=== PATIENT | male | born 1970 | race African-American/Black ===

== ENCOUNTER 2020-04-19 19:39 | Emergency (ER) | payer MEDICAID ==
[~2020-04-19] VITALS: Ht 182.9 cm; Wt 113.6 kg
--- NOTE | 2020-04-19 20:20 | NUR ---
patient resting up in eye exam chair. L saira-orbital swelling present. non-tender to palpation. R lateral eye brow scab from recent fall "9 days ago". patient denies visual changes, dizziness, lightheadedness. pupils both reactive and 4mm and round. patient has family member at chair side. patient asks "am i going to from this? " RN reassured patient
--- NOTE | 2020-04-19 21:05 | NUR ---
patient resting up in chair. will continue to monitor.
--- NOTE | 2020-04-19 22:06 | NUR ---
discharge instructions reviewed with patient. questions regarding holding his child. these were answered to the best of my knowledge. in NAD. steady gait on ambulation to registration desk. all personal belongings with patient
[2020-04-19 22:15] VITALS: BP 146/100
== END 2020-04-19 22:17 | disposition home or self-care (01) ==
LOC: ED 22:00
DX: H10.232 Serous conjunctivitis, except viral, left eye (principal); R51.9 Headache, unspecified; W18.30XA Fall on same level, unspecified, initial encounter; Y93.89 Activity, other specified; Y92.89 Other specified places as the place of occurrence of the external cause; Y99.8 Other external cause status
CPT/HCPCS: 70450; 99284